=== PATIENT | male | born 1980 | race Caucasian/White ===

== ENCOUNTER 2018-06-28 18:35 | Emergency (ER) | payer OTHER ==
[~2018-06-28] VITALS: Ht 167.6 cm; Wt 65.8 kg
[2018-06-28 19:38] VITALS: BP 140/93
== END 2018-06-28 22:13 | disposition home or self-care (01) ==
LOC: ER 18:36
DX: B15.9 Hepatitis A without hepatic coma (principal); F31.9 Bipolar disorder, unspecified; F20.9 Schizophrenia, unspecified
CPT/HCPCS: Z7502